=== PATIENT | male | born 1965 | race Caucasian/White ===

== ENCOUNTER 2021-01-29 07:38 | Day surgery (SDC) | payer BC ==
[2021-01-26 10:34] LABS: EOSINOPHILS % (AUTO) 3.1 % (0.0-8.0); HEMATOCRIT 43.5 % (42-54); LYMPHOCYTES % (AUTO) 25.7 % (21.0-51.0); MEAN CORPUSCULAR HEMOGLOBIN 28.8 pg (27.0-33.0); MEAN CORPUSCULAR HGB CONC 33.1 g/dL (32.0-36.0); MONOCYTES % (AUTO) 10.3 % (3.0-13.0); NEUTROPHILS % (AUTO) 59.1 % (40.0-77.0); PLATELET COUNT (AUTO) 266 K/uL (130-400); WHITE BLOOD COUNT (AUTO) 6.1 K/uL (4.8-10.8)
[2021-01-26 10:49] LABS: CREATININE 0.9 mg/dL (0.5-1.5); POTASSIUM 4.1 mmol/L (3.5-5.1)
[2021-01-28 11:39] VITALS: BP 188/94
[2021-01-29] VITALS (12 sets, daily range): BP systolic 111–182; BP diastolic 59–96
[~2021-01-29] VITALS: Ht 172.7 cm; Wt 125.5 kg
[~2021-01-29 07:38] MED LIST: AMLO-258 PO; CEFAZOLIN 3GM /D5W 100ML 100 ML IV SCH
[2021-01-29] MEDS ORDERED: LACTATED RINGERS 1000ML 1,000 ML IV ONE (08:17)
[2021-01-29] MEDS ORDERED: CEFAZOLIN SODIUM 1 GM VIAL ONE ×2 (08:17→10:59)
[2021-01-29] MEDS ORDERED: MIDAZOLAM HCL 1 MG/ML 2ML VIAL ONE (09:59)
[2021-01-29] MEDS ORDERED: LIDOCAINE HCL-MPF 1% 5ML AMP IJ ONE (09:59)
[2021-01-29] MEDS ORDERED: PROPOFOL 10 MG/ML 20ML VIAL IV ONE (09:59)
[2021-01-29] MEDS ORDERED: FENTANYL CITRATE PF 50 MCG/1 ML 2ML VIAL ONE (10:00)
[2021-01-29] MEDS ORDERED: ROCURONIUM 10MG/1ML SYR 10 MG/ML ML ONE (10:00)
[2021-01-29] MEDS ORDERED: GLYCOPYRROLATE 1 MG/5 ML SYRINGE ONE (11:41)
[2021-01-29] MEDS ORDERED: MEPERIDINE-PF 25 MG/ML SYG ONE (11:56)
[2021-01-29] MEDS ORDERED: CEPH500B PO (13:16)
[2021-01-29] MEDS ORDERED: ACET1TAB25 PO (13:16)
== END 2021-01-29 15:05 | disposition home or self-care (01) ==
LOC: DAH 07:38
PROVIDERS: ATTEND Orthopaedic Surgery
DX: G56.03 Carpal tunnel syndrome, bilateral upper limbs (principal); G56.22 Lesion of ulnar nerve, left upper limb; Z20.822 Contact with and (suspected) exposure to COVID-19; Z98.890 Other specified postprocedural states; Z90.49 Acquired absence of other specified parts of digestive tract; E66.01 Morbid (severe) obesity due to excess calories; I10 Essential (primary) hypertension; Z95.5 Presence of coronary angioplasty implant and graft
CPT/HCPCS: 36415; 64718; 64721; 80048; 85025; 87635; A4215 ×2; A4221; A4222; A4223; A4565; A4649; A4663; A4930 ×2; A6223; C1729; C9803; J0690 ×2; J2175; J2250; J2704; J3010; J3490 ×2; J7120 ×2

== ENCOUNTER 2021-02-18 06:20 | Day surgery (SDC) | payer BC ==
[2021-02-16 10:17] LABS: EOSINOPHILS % (AUTO) 3.9 % (0.0-8.0); HEMATOCRIT 43.8 % (42-54); MEAN CORPUSCULAR HEMOGLOBIN 28.7 pg (27.0-33.0); MEAN CORPUSCULAR HGB CONC 33.1 g/dL (32.0-36.0); MEAN CORPUSCULAR VOLUME 86.6 fL (79-99); NEUTROPHILS % (AUTO) 53.7 % (40.0-77.0); PLATELET COUNT (AUTO) 326 K/uL (130-400); RED BLOOD CELL COUNT(AUTO) 5.06 MIL/uL (4.50-6.20); RED CELL DISTRIBUTION WIDTH 12.8 % (11.0-15.5); WHITE BLOOD COUNT (AUTO) 7.2 K/uL (4.8-10.8)
[2021-02-16 10:25] LABS: CREATININE 0.9 mg/dL (0.5-1.5); POTASSIUM 4.1 mmol/L (3.5-5.1)
[2021-02-17 12:58] VITALS: BP 154/94
[~2021-02-18] VITALS: Ht 172.7 cm; Wt 125.6 kg
[2021-02-18] VITALS (16 sets, daily range): BP systolic 117–147; BP diastolic 63–89
[~2021-02-18 06:20] MED LIST changes: +SIMV-43 PO
[2021-02-18] MEDS ORDERED: CEFAZOLIN SODIUM 1 GM VIAL ONE ×2 (06:52→08:55)
[2021-02-18] MEDS ORDERED: LACTATED RINGERS 1000ML 1,000 ML IV ONE (06:53)
[2021-02-18] MEDS ORDERED: MVIT PO (07:06)
[2021-02-18] MEDS ORDERED: LIDOCAINE PF 100MG/5ML (2%) SYRINGE 5ML ONE ×2 (07:46→09:38)
[2021-02-18] MEDS ORDERED: SUCCINYLCHOLINE CHLORIDE 20 MG/ML 10 ML VIAL ONE (07:46)
[2021-02-18] MEDS ORDERED: LIDOCAINE HCL 5% OINT 50GM 1 APPL/GM TUBE TP ONE (07:46)
[2021-02-18] MEDS ORDERED: BUPIVACAINE/PF 0.5% 10ML VIAL ONE (07:46)
[2021-02-18] MEDS ORDERED: PROPOFOL 10 MG/ML 20ML VIAL IV ONE ×2 (07:47→09:38)
[2021-02-18] MEDS ORDERED: MIDAZOLAM HCL 1 MG/ML 2ML VIAL ONE (07:47)
[2021-02-18] MEDS ORDERED: FENTANYL CITRATE PF 50 MCG/1 ML 2ML VIAL ONE (07:47)
[2021-02-18] MEDS ORDERED: ROCURONIUM 10MG/1ML SYR 10 MG/ML ML ONE (08:06)
[2021-02-18] MEDS ORDERED: CEFAZOLIN SODIUM 1 GM VIAL IVP ONE (08:48)
[2021-02-18] MEDS ORDERED: GLYCOPYRROLATE 1 MG/5 ML SYRINGE ONE (09:22)
[2021-02-18] MEDS ORDERED: NEOSTIGMINE 5MG/5ML SYR IV ONE (09:23)
[2021-02-18] MEDS ORDERED: CEPH500B PO (10:13)
[2021-02-18] MEDS ORDERED: ACET1TAB25 PO (10:13)
== END 2021-02-18 11:20 | disposition home or self-care (01) ==
LOC: DAH 06:20
PROVIDERS: ATTEND Orthopaedic Surgery
DX: G56.01 Carpal tunnel syndrome, right upper limb (principal); Z20.822 Contact with and (suspected) exposure to COVID-19; I10 Essential (primary) hypertension; Z98.890 Other specified postprocedural states; Z90.49 Acquired absence of other specified parts of digestive tract; Z79.899 Other long term (current) drug therapy
CPT/HCPCS: 36415; 64721; 80048; 85025; 87635; A4215 ×2; A4221; A4222; A4223; A4565; A4649; A4663; A4930 ×3; A6223; C9803; J0330; J0690 ×3; J2001 ×2; J2250; J2704 ×2; J2710; J3010; J3490 ×2; J7120